=== PATIENT | male | born 1950 | race Caucasian/White ===

== ENCOUNTER 2017-02-16 20:30 | Observation (INO) | payer OTHER ==
--- NOTE | 2017-02-16 21:30 | C.PDOC ---
History Of Present Illness 66 y/o male brought in by EMS for public intoxication. Patient denies any complaints on arrival. Time Seen by Provider: 02/16/17 21:10 Chief Complaint (Nursing): Substance Abuse History Per: Patient History/Exam Limitations: no limitations Current Symptoms Are (Timing): Still Present Modifying Factor(s): Alcohol Past Medical History Reviewed: Historical Data, Nursing Documentation, Vital Signs Vital Signs: Last Vital Signs Temp 97.8 F 02/16/17 20:40 Pulse 66 02/16/17 20:40 Resp 18 02/16/17 20:40 BP 116/78 02/16/17 20:40 Pulse Ox 100 02/16/17 22:33 - Medical History PMH: Diabetes Family History: States: Unknown Family Hx - Social History Hx Tobacco Use: No Hx Alcohol Use: Yes Hx Substance Use: No Review Of Systems Except As Marked, All Systems Reviewed And Found Negative. Constitutional: Negative for: Fever Cardiovascular: Negative for: Chest Pain Respiratory: Negative for: Shortness of Breath Gastrointestinal: Negative for: Nausea, Vomiting, Abdominal Pain Skin: Negative for: Rash Physical Exam - Physical Exam Appears: No Acute Distress, Other (easily arousable, unsteady on his feet ) Skin: Warm, Dry Head: Atraumatic, Normacephalic Chest: Symmetrical Cardiovascular: Rhythm Regular Respiratory: Normal Breath Sounds, No Rales, No Rhonchi, No Wheezing Gastrointestinal/Abdominal: Soft, No Tenderness Back: Normal Inspection Extremity: Normal ROM Disoriented To: Place, Time Gait: Unsteady ED Course And Treatment O2 Sat by Pulse Oximetry: 100 ED OBSERVATION Date of observation admission: 02/16/17 Time of observation admission: 21:29 - Observation admission statement Patient is being placed in observation because:: Public intoxication, with lack of community services for same in - Goals of Observation Goals of observation are:: Sober up out of public view - Progress Note Progress Note: Pt remained stable, but still with unsteady gait Disposition - Disposition Disposition: HOME/ ROUTINE Disposition Time: 01:00 Condition: FAIR - Clinical Impression Clinical Impression: Alcohol intoxication, Homeless - Scribe Statement The provider has reviewed the documentation as recorded by the Joseph Carter Provider Scribe Attestation: All medical record entries made by the Elsyiblacie were at my direction and personally dictated by me. I have reviewed the chart and agree that the record accurately reflects my personal performance of the history, physical exam, medical decision making, and the department course for this patient. I have also personally directed, reviewed, and agree with the discharge instructions and disposition. Physician Patient Turnover Patient Signed Over To: Clifton De Jesus Handoff Comments: Pend steady gait
[2017-02-17 01:23] VITALS: RESP 20; O2SAT 98
[2017-02-17 04:53] VITALS: BP 134/78; PULSE 87; TEMP 97.4
== END 2017-02-17 04:46 | disposition home or self-care (01) ==
LOC: C.ER 20:30 → SUPCPDRO 20:30 → C.9OBSV 21:28
PROVIDERS: ADMIT Emergency Medicine; ATTEND Emergency Medicine
DX: F10.120 Alcohol abuse with intoxication, uncomplicated (principal); Z59.0 Homelessness; E11.9 Type 2 diabetes mellitus without complications; Y90.9 Presence of alcohol in blood, level not specified
CPT/HCPCS: G0378 ×2

== ENCOUNTER 2018-02-11 20:56 | Emergency (ER) | payer OTHER ==
[2018-02-11 20:57] VITALS: BMI 24.4
[2018-02-11 21:06] VITALS: TEMP 97.9
--- NOTE | 2018-02-11 21:24 | C.PDOC ---
History Of Present Illness Patient brought to ER for public intoxication. Patient states he needs a place to stay for the night. Denies any physical complaints. Time Seen by Provider: 02/11/18 21:23 Chief Complaint (Nursing): Substance Abuse History Per: Patient History/Exam Limitations: no limitations Onset/Duration Of Symptoms: Hrs Current Symptoms Are (Timing): Still Present Suicide/Self Injury Attempted (Context): None Modifying Factor(s): Alcohol Associated Symptoms: denies: Suicidal Thoughts, Suicidal Plan Involuntary Hold By: None Recent travel outside of the [place]: No Past Medical History Reviewed: Historical Data, Nursing Documentation, Vital Signs Vital Signs: Last Vital Signs Temp 97.9 F 02/11/18 21:03 Pulse 80 02/12/18 00:00 Resp 18 02/12/18 00:00 BP 120/74 02/12/18 00:00 Pulse Ox 95 02/12/18 00:00 - Medical History PMH: Diabetes, Hiatal Hernia (left sided), HTN Surgical History: Hernia Repair (left) - [facility] Procedures INTRODUCE LOCAL ANESTH IN PERIPH NRV, PLEXI, PERC (06/26/17) REPOSITION LEFT UPPER FEMUR WITH INT FIX, OPEN APPROACH (06/26/17) Family History: States: No Known Family Hx - Social History Hx Tobacco Use: No Hx Alcohol Use: Yes Hx Substance Use: No - Immunization History Hx Tetanus Toxoid Vaccination: No (unknown) Hx Influenza Vaccination: No (unknown) Hx Pneumococcal Vaccination: No (unknown) Review Of Systems Constitutional: Negative for: Fever, Chills Cardiovascular: Negative for: Chest Pain Respiratory: Negative for: Shortness of Breath Gastrointestinal: Negative for: Nausea, Vomiting, Abdominal Pain, Diarrhea Skin: Negative for: Rash Neurological: Negative for: Weakness, Numbness Psych: Negative for: Suicidal ideation Physical Exam - Physical Exam Appears: Non-toxic, No Acute Distress Skin: Warm, Dry Head: Normacephalic Eye(s): bilateral: Normal Inspection Oral Mucosa: Moist Neck: Trachea Midline, Supple Chest: Symmetrical, No Tenderness Cardiovascular: Rhythm Regular Respiratory: No Decreased Breath Sounds, No Rales, No Rhonchi, No Wheezing Gastrointestinal/Abdominal: Soft, No Tenderness, No Distention Extremity: Normal ROM, No Deformity Extremity: Bilateral: Normal Color And Temperature, Normal ROM Neurological/Psych: Oriented x3 (Awake and alert) ED Course And Treatment O2 Sat by Pulse Oximetry: 94 (RA) Pulse Ox Interpretation: Normal Reevaluation Time: 04:43 Reassessment Condition: Improved Disposition Counseled Patient/Family Regarding: Studies Performed, Diagnosis, Need For Followup - Disposition Referrals: [facility] [Outside] Disposition: HOME/ ROUTINE Disposition Time: 21:23 Condition: FAIR Instructions: Alcohol Abuse and Alcoholism (DC) Forms: [facility] (Nauruan) - Clinical Impression Clinical Impression: Alcohol abuse, Alcohol intoxication - Scribe Statement The provider has reviewed the documentation as recorded by the Scriblacie Finch All medical record entries made by the Elsyiblacie were at my direction and personally dictated by me. I have reviewed the chart and agree that the record accurately reflects my personal performance of the history, physical exam, medical decision making, and the department course for this patient. I have also personally directed, reviewed, and agree with the discharge instructions and disposition.
[2018-02-12 03:01] VITALS: RESP 18
[2018-02-12 05:28] VITALS: BP 127/80; PULSE 77; O2SAT 97
== END 2018-02-12 05:28 | disposition home or self-care (01) ==
LOC: C.ER 20:56
DX: F10.129 Alcohol abuse with intoxication, unspecified (principal); Y90.9 Presence of alcohol in blood, level not specified

== ENCOUNTER 2018-03-23 17:40 | Emergency (ER) | payer OTHER ==
[2018-03-23 17:41] VITALS: BMI 24.4
[2018-03-23 18:04] VITALS: PULSE 87; O2SAT 95
--- NOTE | 2018-03-23 18:34 | C.PDOC ---
History Of Present Illness 67 year old male is brought to the ED for evaluation of public alcohol intoxication for an unknown duration. As per EMS, patient is a well-known alcoholic and was found lying on the ground prior to arrival. Patient admits to drinking earlier today and has no complaints at this time. Time Seen by Provider: 03/23/18 17:42 Chief Complaint (Nursing): Substance Abuse History Per: Patient, EMS History/Exam Limitations: intoxication Onset/Duration Of Symptoms: Hrs Current Symptoms Are (Timing): Still Present Suicide/Self Injury Attempted (Context): None Modifying Factor(s): Alcohol Associated Symptoms: denies: Suicidal Thoughts, Suicidal Plan Involuntary Hold By: None Recent travel outside of the [place]: No Additional History Per: Patient, EMS Past Medical History Reviewed: Historical Data, Nursing Documentation, Vital Signs Vital Signs: Last Vital Signs Temp 97.7 F 03/23/18 20:56 Pulse 87 03/23/18 20:56 Resp 18 03/23/18 20:56 BP 127/78 03/23/18 20:56 Pulse Ox 95 03/23/18 20:56 - Medical History PMH: Diabetes, Hiatal Hernia (left), HTN Surgical History: Hernia Repair (left) - [facility] Procedures INTRODUCE LOCAL ANESTH IN PERIPH NRV, PLEXI, PERC (06/26/17) REPOSITION LEFT UPPER FEMUR WITH INT FIX, OPEN APPROACH (06/26/17) Family History: States: Unknown Family Hx - Social History Hx Tobacco Use: No Hx Alcohol Use: Yes Hx Substance Use: No - Immunization History Hx Tetanus Toxoid Vaccination: No Hx Influenza Vaccination: No Hx Pneumococcal Vaccination: No Review Of Systems Psych: Positive for: Other (EtOH intoxication ). Negative for: Suicidal ideation Physical Exam - Physical Exam Appears: Non-toxic, No Acute Distress, Other (visibly intoxicated ) Skin: Normal Color, Warm, Dry Head: Atraumatic, Normacephalic Eye(s): bilateral: Normal Inspection Oral Mucosa: Moist, Other (alcohol on breath ) Neck: Supple Chest: Symmetrical, No Deformity, No Tenderness Cardiovascular: Rhythm Regular, No Murmur Respiratory: Normal Breath Sounds, No Rales, No Rhonchi, No Wheezing Extremity: Normal ROM, Capillary Refill (less than 2 seconds ) Neurological/Psych: Other (arousable to touch and verbal stimuli ) ED Course And Treatment O2 Sat by Pulse Oximetry: 95 (on RA) Pulse Ox Interpretation: Normal Progress Note: Labs ordered and reviewed. Reevaluation Time: 23:40 Reassessment Condition: Improved (Patient awake and alert. Ambulatory with steady gait.) Disposition - Disposition Disposition: HOME/ ROUTINE Disposition Time: 23:40 Condition: IMPROVED - Clinical Impression Clinical Impression: Alcohol intoxication - Scribe Statement The provider has reviewed the documentation as recorded by the Scribe (Rona Sky) Provider Attestation: All medical record entries made by the Scribe were at my direction and personally dictated by me. I have reviewed the chart and agree that the record accurately reflects my personal performance of the history, physical exam, medical decision making, and the department course for this patient. I have also personally directed, reviewed, and agree with the discharge instructions and disposition.
[2018-03-23 20:56] VITALS: BP 127/78; RESP 18; TEMP 97.7
== END 2018-03-23 23:24 | disposition home or self-care (01) ==
LOC: C.ER 17:40
DX: F10.129 Alcohol abuse with intoxication, unspecified (principal); E11.9 Type 2 diabetes mellitus without complications; I10 Essential (primary) hypertension

== ENCOUNTER 2018-08-05 15:45 | Emergency (ER) | payer OTHER ==
[2018-08-05 15:46] VITALS: BMI 24.4
[2018-08-05 15:51] VITALS: BP 97/63
[2018-08-05 15:58] VITALS: PULSE 68; RESP 18; TEMP 98.6; O2SAT 96
--- NOTE | 2018-08-05 16:40 | C.PDOC ---
History Of Present Illness 68 y/o male brought in by EMS for public malingering. Pt is awake, alert, and oriented. Denies any physical complaints at this time. Time Seen by Provider: 08/05/18 16:36 Chief Complaint (Nursing): Substance Abuse History Per: Patient History/Exam Limitations: no limitations Past Medical History Reviewed: Historical Data, Nursing Documentation, Vital Signs Vital Signs: Last Vital Signs Temp 98.6 F 08/05/18 15:57 Pulse 68 08/05/18 15:57 Resp 18 08/05/18 15:57 BP 97/63 L 08/05/18 15:57 Pulse Ox 96 08/05/18 15:57 - Medical History PMH: Diabetes, Hiatal Hernia (left), HTN Surgical History: Hernia Repair (left) - [facility] Procedures INTRODUCE LOCAL ANESTH IN PERIPH NRV, PLEXI, PERC (06/26/17) REPOSITION LEFT UPPER FEMUR WITH INT FIX, OPEN APPROACH (06/26/17) Family History: States: Unknown Family Hx - Social History Hx Tobacco Use: No Hx Alcohol Use: Yes Hx Substance Use: No - Immunization History Hx Tetanus Toxoid Vaccination: No Hx Influenza Vaccination: No Hx Pneumococcal Vaccination: No Review Of Systems Except As Marked, All Systems Reviewed And Found Negative. Constitutional: Negative for: Fever, Chills Cardiovascular: Negative for: Chest Pain Respiratory: Negative for: Shortness of Breath Physical Exam - Physical Exam Appears: Non-toxic, No Acute Distress, Unkempt, Other (EtOH on breath) Skin: Normal Color, Warm, Dry Head: Atraumatic, Normacephalic Eye(s): bilateral: Normal Inspection Oral Mucosa: Moist Cardiovascular: Rhythm Regular Respiratory: Normal Breath Sounds, No Rales, No Rhonchi, No Wheezing Gastrointestinal/Abdominal: Soft, No Tenderness Extremity: Normal ROM Neurological/Psych: Oriented x3, Normal Speech ED Course And Treatment O2 Sat by Pulse Oximetry: 96 Pulse Ox Interpretation: Normal Medical Decision Making Medical Decision Making: typical alcohol abuse not intoxicated in ED stable gait ok for d/c no new injuries. Disposition Doctor Will See Patient In The: Office Counseled Patient/Family Regarding: Studies Performed, Diagnosis - Disposition Referrals: [facility] [Outside] [facility] [Outside] [facility] [Outside] [facility] [Outside] [facility] [Outside] Disposition: HOME/ ROUTINE Disposition Time: 16:39 Condition: GOOD Instructions: Alcohol Abuse and Alcoholism (DC) Forms: [employer] [facility] (Martiniquais) - Clinical Impression Clinical Impression: Alcohol abuse - Scribe Statement The provider has reviewed the documentation as recorded by the Scribe Dulce Sky All medical record entries made by the Scribe were at my direction and personally dictated by me. I have reviewed the chart and agree that the record accurately reflects my personal performance of the history, physical exam, medical decision making, and the department course for this patient. I have also personally directed, reviewed, and agree with the discharge instructions and disposition.
== END 2018-08-05 18:32 | disposition home or self-care (01) ==
LOC: C.ER 15:45
DX: F10.10 Alcohol abuse, uncomplicated (principal); E11.9 Type 2 diabetes mellitus without complications

== ENCOUNTER 2018-08-24 20:14 | Emergency (ER) | payer OTHER ==
[2018-08-24 20:14] VITALS: BMI 24.4
--- NOTE | 2018-08-24 20:33 | C.PDOC ---
History Of Present Illness 68 y/o male brought in by ambulance for public intoxication. Patient was in a restaurant being disruptive and 911 was called. Denies drug use. Admits to ETOH use. Patient offers no acute complaints. No evidence of trauma/injury. Time Seen by Provider: 08/24/18 20:32 Chief Complaint (Nursing): Substance Abuse History Per: Patient History/Exam Limitations: no limitations Onset/Duration Of Symptoms: Hrs Current Symptoms Are (Timing): Still Present Suicide/Self Injury Attempted (Context): None Modifying Factor(s): Alcohol Associated Symptoms: denies: Suicidal Thoughts, Suicidal Plan Involuntary Hold By: None Recent travel outside of the [place]: No Additional History Per: EMS Past Medical History Reviewed: Historical Data, Nursing Documentation, Vital Signs Vital Signs: Last Vital Signs Temp 97.8 F 08/24/18 20:16 Pulse 74 08/24/18 20:16 Resp 16 08/24/18 20:16 BP 90/60 L 08/24/18 20:16 Pulse Ox 95 08/24/18 20:16 - Medical History PMH: Diabetes, Hiatal Hernia (left), HTN Surgical History: Hernia Repair (left) - [facility] Procedures INTRODUCE LOCAL ANESTH IN PERIPH NRV, PLEXI, PERC (06/26/17) REPOSITION LEFT UPPER FEMUR WITH INT FIX, OPEN APPROACH (06/26/17) Family History: States: Unknown Family Hx - Social History Hx Tobacco Use: No Hx Alcohol Use: Yes Hx Substance Use: No - Immunization History Hx Tetanus Toxoid Vaccination: No Hx Influenza Vaccination: No Hx Pneumococcal Vaccination: No Review Of Systems Constitutional: Negative for: Fever, Chills Gastrointestinal: Negative for: Nausea, Vomiting Psych: Positive for: Other (ETOH intoxication). Negative for: Suicidal ideation Physical Exam - Physical Exam Appears: Non-toxic, No Acute Distress Skin: Warm, Dry Head: Normacephalic Eye(s): bilateral: Normal Inspection Oral Mucosa: Moist Neck: Trachea Midline, Supple Chest: Symmetrical Cardiovascular: Rhythm Regular Respiratory: No Rales, No Rhonchi, No Wheezing Gastrointestinal/Abdominal: Soft, No Tenderness, No Distention Extremity: Bilateral: Atraumatic, Normal Color And Temperature Pulses: Left Dorsalis Pedis: Normal, Right Dorsalis Pedis: Normal Neurological/Psych: Oriented x3 ED Course And Treatment O2 Sat by Pulse Oximetry: 95 (RA) Pulse Ox Interpretation: Normal Progress Note: On examination patient is resting comfortably, no complaints offered. Patient remains AAOx3, in no acute distress. Ambulatory with steady gait. Stable for d/c home. Reassessment Condition: Improved Disposition Counseled Patient/Family Regarding: Studies Performed, Diagnosis, Need For Followup - Disposition Referrals: [facility] [Outside] Disposition: HOME/ ROUTINE Disposition Time: 20:33 Condition: FAIR Instructions: Alcohol Abuse and Alcoholism (DC) Forms: [employer] (Greek) - Clinical Impression Clinical Impression: Alcohol intoxication - Scribe Statement The provider has reviewed the documentation as recorded by the Scribe (Jossy Dennis) All medical record entries made by the Scribe were at my direction and personally dictated by me. I have reviewed the chart and agree that the record accurately reflects my personal performance of the history, physical exam, medical decision making, and the department course for this patient. I have also personally directed, reviewed, and agree with the discharge instructions and disposition.
[2018-08-24 23:36] VITALS: RESP 20
[2018-08-25 05:24] VITALS: BP 111/75; PULSE 74; TEMP 97.2; O2SAT 95
== END 2018-08-25 05:29 | disposition home or self-care (01) ==
LOC: C.ER 20:14
DX: F10.129 Alcohol abuse with intoxication, unspecified (principal); Y90.9 Presence of alcohol in blood, level not specified

== ENCOUNTER 2018-09-25 22:02 | Emergency (ER) | payer OTHER ==
[2018-09-25 22:02] VITALS: BMI 24.4
--- NOTE | 2018-09-25 22:40 | C.PDOC ---
History Of Present Illness 68 y/o male presents to the ED via ambulance for ETOH intoxication. As per EMS, patient was found intoxicated outside of a store. Patient admits to drinking tonight. He denies any drug use. Patient offers no physical complaints. Time Seen by Provider: 09/25/18 22:40 Chief Complaint (Nursing): Substance Abuse History Per: Patient History/Exam Limitations: intoxication Onset/Duration Of Symptoms: Hrs Current Symptoms Are (Timing): Still Present Suicide/Self Injury Attempted (Context): None Modifying Factor(s): Alcohol Severity: None Pain Scale Rating Of: 0 Associated Symptoms: denies: Suicidal Thoughts, Suicidal Plan Involuntary Hold By: None Additional History Per: EMS Past Medical History Reviewed: Historical Data, Nursing Documentation, Vital Signs Vital Signs: Last Vital Signs Temp 98 F 09/25/18 22:17 Pulse 69 09/25/18 22:17 Resp 20 09/25/18 22:17 BP 101/56 L 09/25/18 22:17 Pulse Ox 99 09/25/18 22:17 - Medical History PMH: Diabetes, Hiatal Hernia (left), HTN Surgical History: Hernia Repair (left) - [facility] Procedures INTRODUCE LOCAL ANESTH IN PERIPH NRV, PLEXI, PERC (06/26/17) REPOSITION LEFT UPPER FEMUR WITH INT FIX, OPEN APPROACH (06/26/17) Family History: States: Unknown Family Hx - Social History Hx Tobacco Use: No Hx Alcohol Use: Yes Hx Substance Use: No - Immunization History Hx Tetanus Toxoid Vaccination: No Hx Influenza Vaccination: No Hx Pneumococcal Vaccination: No Review Of Systems Constitutional: Negative for: Fever Respiratory: Negative for: Shortness of Breath Gastrointestinal: Negative for: Vomiting, Abdominal Pain Psych: Positive for: Other (ETOH intoxication). Negative for: Suicidal ideation (or homicidal ideation) Physical Exam - Physical Exam Appears: Non-toxic, No Acute Distress Skin: Warm, Dry Head: Normacephalic Eye(s): bilateral: Normal Inspection Oral Mucosa: Moist Neck: Trachea Midline, Supple Chest: Symmetrical Cardiovascular: Rhythm Regular Respiratory: No Rales, No Rhonchi, No Wheezing Gastrointestinal/Abdominal: Soft, No Tenderness, No Distention Extremity: Bilateral: Normal Color And Temperature Pulses: Left Dorsalis Pedis: Normal, Right Dorsalis Pedis: Normal Neurological/Psych: Other (Appears intoxicated, responds to verbal stimuli) ED Course And Treatment O2 Sat by Pulse Oximetry: 99 (RA) Pulse Ox Interpretation: Normal Progress Note: On reevaluation patient is resting comfortably, AAOx3, in no acute distress. Patient is ambulatory with steady gait, and stable for discharge home. Reevaluation Time: 05:16 Reassessment Condition: Improved Disposition Counseled Patient/Family Regarding: Studies Performed, Diagnosis, Need For Followup - Disposition Referrals: [facility] [Outside] Disposition: HOME/ ROUTINE Disposition Time: 22:40 Condition: FAIR Instructions: Alcohol Abuse and Alcoholism (DC) Forms: [employer] (Yi) - Clinical Impression Clinical Impression: Alcohol abuse with intoxication - Scribe Statement The provider has reviewed the documentation as recorded by the Joseph Dennis Provider Attestation: All medical record entries made by the Joseph were at my direction and personally dictated by me. I have reviewed the chart and agree that the record accurately reflects my personal performance of the history, physical exam, medical decision making, and the department course for this patient. I have also personally directed, reviewed, and agree with the discharge instructions and disposition.
[2018-09-26 05:59] VITALS: BP 122/61; PULSE 83; RESP 20; TEMP 98; O2SAT 98
== END 2018-09-26 05:59 | disposition home or self-care (01) ==
LOC: C.ER 22:02
DX: F10.129 Alcohol abuse with intoxication, unspecified (principal); E11.9 Type 2 diabetes mellitus without complications; I10 Essential (primary) hypertension

== ENCOUNTER 2019-03-31 22:12 | Emergency (ER) | payer OTHER ==
[2019-03-31 22:12] VITALS: BMI 24.4
--- NOTE | 2019-03-31 22:48 | C.PDOC ---
History Of Present Illness 69 y/o male BIBA for alcohol intoxication today. Patient is awake and alert. Denies any physical complaints at this time. Time Seen by Provider: 03/31/19 22:42 Chief Complaint (Nursing): Substance Abuse History Per: Patient, EMS History/Exam Limitations: no limitations Onset/Duration Of Symptoms: Hrs Current Symptoms Are (Timing): Still Present Past Medical History Reviewed: Historical Data, Nursing Documentation, Vital Signs Vital Signs: Last Vital Signs Temp 98.2 F 03/31/19 22:30 Pulse 84 03/31/19 22:30 Resp 22 03/31/19 22:30 BP 108/72 03/31/19 22:30 Pulse Ox 94 L 03/31/19 22:30 Primary Care Provider: FAMILY PROVIDER,NO - Medical History PMH: Diabetes, Hiatal Hernia (left), HTN Surgical History: Hernia Repair (left) - [facility] Procedures INTRODUCE LOCAL ANESTH IN PERIPH NRV, PLEXI, PERC (06/26/17) REPOSITION LEFT UPPER FEMUR WITH INT FIX, OPEN APPROACH (06/26/17) Family History: States: No Known Family Hx - Social History Hx Tobacco Use: No Hx Alcohol Use: Yes Hx Substance Use: No - Immunization History Hx Tetanus Toxoid Vaccination: No Hx Influenza Vaccination: No Hx Pneumococcal Vaccination: No Review Of Systems Except As Marked, All Systems Reviewed And Found Negative. Gastrointestinal: Negative for: Vomiting Psych: Positive for: Other (alcohol intoxication). Negative for: Psychosis, Suicidal ideation Physical Exam - Physical Exam Appears: Non-toxic, No Acute Distress Skin: Warm, Dry Head: Normacephalic Eye(s): bilateral: Normal Inspection Oral Mucosa: Moist Neck: Supple Cardiovascular: Rhythm Regular, No Murmur Respiratory: Normal Breath Sounds, No Rales, No Rhonchi, No Wheezing Gastrointestinal/Abdominal: Soft, No Tenderness Extremity: Bilateral: Atraumatic, Normal Color And Temperature Neurological/Psych: Oriented x3, Normal Speech ED Course And Treatment O2 Sat by Pulse Oximetry: 94 (RA) Pulse Ox Interpretation: Abnormal Medical Decision Making Medical Decision Making: observed overnight in nad. in am awake aler tsteady gait stable for dc no issues overnigh.[email or web address] Disposition - Disposition Referrals: [facility] [Outside] at [facility] [Outside] Disposition: HOME/ ROUTINE Disposition Time: 22:46 Condition: STABLE Additional Instructions: return to er with worsening Instructions: Alcohol Use - When Is Drinking a Problem? Forms: [facility] (Ivorian) Print Language: UKRAINIAN - Clinical Impression Clinical Impression: Alcohol intoxication - Scribe Statement The provider has reviewed the documentation as recorded by the Elsyiblacie Trujillo Provider Attestation: All medical record entries made by the Elsyiblacie were at my direction and personally dictated by me. I have reviewed the chart and agree that the record accurately reflects my personal performance of the history, physical exam, medical decision making, and the department course for this patient. I have also personally directed, reviewed, and agree with the discharge instructions and disposition.
[2019-04-01 05:52] VITALS: BP 106/74; PULSE 74; RESP 16; TEMP 98.1
[2019-04-01 06:06] VITALS: O2SAT 94
== END 2019-04-01 05:52 | disposition home or self-care (01) ==
LOC: C.ER 22:12
DX: F10.129 Alcohol abuse with intoxication, unspecified (principal); Y90.9 Presence of alcohol in blood, level not specified